=== PATIENT | male | born 1970 ===

== ENCOUNTER 2021-11-21 19:47 | Emergency (ER) | payer BC, SELFPAY ==
[2021-11-21 19:51] VITALS: BP 161/93; PULSE 84; RESP 18; TEMP 36.3; O2SAT 99; BMI 24.3
--- NOTE | 2021-11-21 20:01 | ED_ITS ---
HPI - General Adult General Time Seen by Provider: 20:13 Date Seen: 11/21/21 Chief complaint: Unspecified Complaint, Adult Stated complaint: SEVERE ALLERGIES - RED EYES,CONGESTED Time Seen by Provider: 11/21/21 19:49 Source: patient and RN notes reviewed Mode of arrival: ambulatory Limitations: no limitations History of Present Illness HPI narrative: Patient is a 51-year-old male coming in with concern of worsening seasonal allergies. States his wonders if he could have a sinus infection. He has had no fevers. He does not have any dental pain. Over the last 4 years, this time of year he has had seasonal allergies develop. He gets itchy, watery, red eyes. He gets nasal congestion, sneezing as well as a runny nose. No respiratory symptoms. He is absolutely not had any fevers. Allergies started bothering him about a week ago but last night they became severe where his eyes are worse, his nasal congestion is terrible, difficulty breathing through his nose. He is on Zyrtec D, is using a nasal steroid and believes it might be Flonase, has anti allergy eyedrops. Recently moved to [facility]. Related Data Home Medications Medication Instructions Recorded Confirmed Zyrtec-D 11/21/21 Review of Systems Status of ROS: Reports: 6 or more systems reviewed and unremarkable except as noted in History and below [facility] Social History Smoking Status: Never smoker How often do you have a drink containing alcohol: monthly or less AUDIT-C Alcohol total score: 1 Non-prescribed substance use: denies use Exam Const: Vital Signs, click to edit/add: Vital Signs - 24 hr 11/21/21 19:51 Temperature 97.3 F L Pulse Rate [Left P ulse Oximeter] 84 Respiratory Rate 18 Blood Pressure [Ri ght Upper Arm] 161/93 H Pulse Oximetry 99 Oxygen Delivery Me thod Room Air Documenting provider has reviewed patient's vital signs: yes Common normals: no apparent distress, average body habitus, oriented x3, no limitations, healthy appearing, alert and well nourished HENMT: Common normals: normocephalic, head/scalp atraumatic and hearing grossly normal bilaterally Head and scalp: normocephalic and atraumatic Other: Audible nasal congestion, pale boggy nasal membranes without drainage noted. Oropharynx with normal mucosa, no exudates or erythema. Speech is normal. [place] ition good repair. Neck is supple, no thyromegaly masses or nodules. Eye: Common normals: PERRL and EOMs intact bilaterally Pupil: PERRL Other: His conjunctivae are injected, no periorbital swelling or erythema, no purulent discharge. Neck & C-Spine: Common normals: full ROM, no lymphadenopathy, supple, no meningeal signs, no JVD and thyroid normal Thyroid: thyroid normal Resp: Common normals: normal respiratory effort, no retractions, no use of accessory muscles and clear to auscultation bilaterally Auscultation: clear to auscultation bilaterally Cardio: Common normals: no JVD, regular rate, regular rhythm, S1 normal heart sound, S2 normal heart sound, no gallops, no clicks, no murmurs and no rub Rate: regular rate Rhythm: regular rhythm Heart sounds: S1 normal and S2 normal Neuro: Common normals: oriented x3 Sensorium/orientation: alert Meningeal signs: no meningeal signs Course Course Hospital Course: Reviewed with patient that I really do not feel he has any evidence of bacterial sinusitis. This certainly sounds like seasonal allergies. Unfortunately, I do not have any 40 mg Kenalog here. That typically will work quite well but again I do not have available to me. I have discussed with him trying some steroids, I think a short course of prednisone may help him. He does need to get scheduled back in clinic, discussed his allergies and maybe even consider al camilagy referral. I have talked to him about getting scheduled with [facility]. In his situation, I really do not have a lot available to me out of our ER at this time of night for seasonal allergies. I would certainly give him a shot of Kenalog but again, we do not have the 40 mg Kenalog. Reevaluation(s) Reevaluation #1: My partner in the ED was able to help me find the 40 mg Kenalog. It is under triamcinolone and not Kenalog in the medication ordering. I reviewed with the patient that we indeed do have this in I have had good success with single injection in helping with allergies. He would like to try this. I have ordered 40 mg IM Kenalog. Time: 20:19 Vital Signs Vital signs: Initial Vital Signs Temperature 97.3 F L 11/21/21 19:51 Temperature Source Temporal Artery Scan 11/21/21 19:51 Pulse Rate 84 11/21/21 19:51 Respiratory Rate 18 11/21/21 19:51 Blood Pressure 161/93 H 11/21/21 19:51 Blood Pressure Mean 115 11/21/21 19:51 Blood Pressure Position Sitting 11/21/21 19:51 Pulse Oximetry 99 11/21/21 19:51 Oxygen Delivery Method 11/21/21 19:51 Vital Signs Temperature 97.3 F L 11/21/21 19:51 Pulse Rate 84 11/21/21 19:51 Respiratory Rate 18 11/21/21 19:51 Blood Pressure 161/93 H 11/21/21 19:51 Pulse Oximetry 99 11/21/21 19:51 Oxygen Delivery Method 11/21/21 19:51 Temperature 97.3 F L 11/21/21 19:51 Pulse Rate 84 11/21/21 19:51 Respiratory Rate 18 11/21/21 19:51 Blood Pressure 161/93 H 11/21/21 19:51 Pulse Oximetry 99 11/21/21 19:51 Oxygen Delivery Method 11/21/21 19:51 Critical Care Time Critical Care Time Critical Care Time: No Discharge Plan Discharge Clinical Impression: Acute allergic conjunctivitis, Allergic rhinitis Patient Disposition: Home, Self-Care Condition: Stable Instructions: Allergic Rhinitis (ED), Conjunctivitis (ED), How to Use Nasal [place] (ED) Additional Instructions: Can see if Chata might work better than the Zyrtec for you. This is [id number]. Do recommend stain on the Flonase, can use 2 sprays each nostril up to twice a day as long as it is not drain out you nasal membranes too much and given you nose bleeds. Can continue with her eyedrops that her on. If the Kenalog works for you, you hopefully will have improvement within 24 hours. It may give you relief anywhere from 2-4 weeks. I still do recommend that you follow up in clinic, get established with a primary care provider. They can help tried different medications, even consider allergy referral. Activity Level: No Restrictions Discharge Diet: Regular Prescriptions: No Action Zyrtec-D Stand Alone Forms: [employer] Info Instructions
[2021-11-21] MEDS: TRIAMCINOLONE 40 MG/ML INJ IM (21:23)
== END 2021-11-21 21:46 | disposition home or self-care (01) ==
PROVIDERS: Emergency Provider Family Medicine
DX: J30.2 Other seasonal allergic rhinitis (principal); H10.10 Acute atopic conjunctivitis, unspecified eye
CPT/HCPCS: 96372; 99283; J3301

== ENCOUNTER 2022-04-11 14:19 | Emergency (ER) | payer BC, SELFPAY ==
[2022-04-11 14:22] VITALS: BP 155/79; PULSE 72; TEMP 36.4; O2SAT 100; BMI 25.1
--- NOTE | 2022-04-11 16:08 | CRLHL7_ITS ---
For Patients: As a result of the Cures Act, medical imaging exams and procedure reports are released immediately into your electronic medical record. You may view this report before your referring provider. If you have questions, please contact your health care provider. Indication: Left upper pleuritic pain Comparison: None available. Technique: Single AP view chest Findings: Hyperinflation and interstitial changes. There is no focal consolidation, effusion, or pneumothorax. The cardiac silhouette is mildly prominent. The bony thorax is grossly intact. Impression: Mild central bronchial thickening without dense consolidation. Dictated by Saqib Beard MD @ 04/11/2022 5:15:18 PM (Electronically Signed)
[2022-04-11 16:56] LABS: Hemoglobin* 14.1 gm/dL (13.5-17.5)
--- NOTE | 2022-04-11 16:57 | ED.CHESTPAIN ---
HPI - Chest Pain General Chief Complaint: Chest Pain Stated Complaint: Chest pain Time Seen by Provider: 04/11/22 15:31 History of Present Illness HPI narrative: A 51-year-old man presenting to the emergency department after initially going to urgent care with complaint of mid left-sided chest pain over the last week. Rates a 4/10 at most intense although more rarely will pulse for a second of more intense pain. Has been otherwise generally present at a lower level over the week. Describes it as a pressure. Does have some pleuritic component. He also describes a sense of air hunger at times. No fever, myalgias, cough or cold symptoms recently. No rashes. Does not recall any trauma. 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 No lightheadedness. No dizziness. Abdominal pain. No family history of particular cardiac disease or dysrhythmias or rheumatological disease. He does recount on a few occasions that he has woke with a sense of tingling in his mid low lower leg extending through his feet. No focal weaknesses. Related Data Home Medications Medication Instructions Recorded Confirmed Zyrtec-D 11/21/21 amlodipine 10 mg tablet 10 mg PO QDAY 04/11/22 04/11/22 Allergies Allergy/AdvReac Type Severity Reaction Status Date / Time No Known Drug Allergies Allergy Verified 04/11/22 14:02 Review of Systems Status of ROS Reports: 10 or more systems reviewed and unremarkable except as noted in History and below [facility] Social History Smoking Status: Never smoker How often do you have a drink containing alcohol: monthly or less AUDIT-C Alcohol total score: 1 Non-prescribed substance use: denies use service: No Exam Narrative Exam Narrative: Pleasant. Calm. NAD. Skin is warm and dry. Cranial nerves 2-12 look to be intact. Is breathing easily. Lungs are clear. Breath sounds throughout. There is no supraclavicular crepitus. Cardiovascular with heart with regular rate and rhythm. No murmur rub gallop. Abdomen is flat soft nontender without HSM and no masses. Extremities are well perfused without edema in the lower extremities or elsewhere. Negative Homans. Oropharynx is moist unremarkable. Const Vital Signs, click to edit/add: Vital Signs - 24 hr 04/11/22 14:22 04/11/22 17:39 Temperature 97.6 F 97.2 F L Pulse Rate [Pulse Oximeter] 72 67 Blood Pressure [Right Upper Arm] 155/79 H 136/67 Pulse Oximetry 100 98 Oxygen Delivery Method Room Air Room Air Documenting provider has reviewed patient's vital signs: yes Course Vital Signs Vital signs: Initial Vital Signs Temperature 97.6 F 04/11/22 14:22 Temperature Source Temporal Artery Scan 04/11/22 14:22 Pulse Rate 72 04/11/22 14:22 Blood Pressure 155/79 H 04/11/22 14:22 Blood Pressure Mean 104 04/11/22 14:22 Blood Pressure Position Supine 04/11/22 14:22 Pulse Oximetry 100 04/11/22 14:22 Oxygen Delivery Method 04/11/22 14:22 Vital Signs Temperature 97.6 F 04/11/22 14:22 Pulse Rate 72 04/11/22 14:22 Blood Pressure 155/79 H 04/11/22 14:22 Pulse Oximetry 100 04/11/22 14:22 Oxygen Delivery Method 04/11/22 14:22 Temperature 97.2 F L 04/11/22 17:39 Pulse Rate 67 04/11/22 17:39 Blood Pressure 136/67 04/11/22 17:39 Pulse Oximetry 98 04/11/22 17:39 Oxygen Delivery Method 04/11/22 17:39 MDM - Chest Pain MDM Narrative Medical decision making narrative: Differential also includes pneumonia, vascular dissection, pleuritis Chest x-ray reviewed by me appreciated some mild interstitial edema or centrally borderline cardiomegaly perhaps though this is a portable chest x-ray. More impressive I think are the osteoarthritic changes through the spine. Seems premature. 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 Radiology over-read as below Impression: Mild central bronchial thickening without dense consolidation. Differential Diagnosis Differential diagnosis: Likely pneumothorax, atypical chest pain, costochondritis and chest pain Lab Data Attestation: I reviewed the patient's lab results. Labs: Lab Results 04/11/22 04/11/22 04/11/22 Range/Units 16:27 16:27 16:27 Hgb 14.1 (13.5-17.5) gm/dL D-Dimer Quant (PE/DVT) 0.29 (0.00-0.50) ug/ml Sodium 140 (135-149) mmol/L Potassium 4.7 (3.6-5.1) mmol/L Chloride 103 (96-114) mmol/L Carbon Dioxide 29 (20-32) mmol/L BUN 16 (7-30) mg/dL Creatinine 0.7 (0.5-1.5) mg/dL Estimated Creat Clear 115.41 Estimated GFR 111 ml/min Glucose 86 (60-115) mg/dL Calcium 9.7 (8.4-10.6) mg/dL Troponin I < 0.01 L (0.01-0.04) ng/mL C-Reactive Protein < 0.5 L (0.5-1.0) mg/dL NT-Pro-B Natriuret Pep 28 pg/mL SARS-CoV-2 (PCR) (Negative) POC Troponin I (0.01-0.04) ng/ml 04/11/22 04/11/22 04/11/22 Range/Units 16:27 16:27 18:00 Hgb (13.5-17.5) gm/dL D-Dimer Quant (PE/DVT) (0.00-0.50) ug/ml Sodium (135-149) mmol/L Potassium (3.6-5.1) mmol/L Chloride (96-114) mmol/L Carbon Dioxide (20-32) mmol/L BUN (7-30) mg/dL Creatinine (0.5-1.5) mg/dL Estimated Creat Clear Estimated GFR ml/min Glucose (60-115) mg/dL Calcium (8.4-10.6) mg/dL Troponin I (0.01-0.04) ng/mL C-Reactive Protein (0.5-1.0) mg/dL NT-Pro-B Natriuret Pep Cancelled pg/mL SARS-CoV-2 (PCR) Negative SARS-CoV-2 (Negative) POC Troponin I 0.00 L (0.01-0.04) ng/ml ECG Data Attestation: I personally reviewed and interpreted this ECG as follows: (Normal sinus rhythm at a rate of 61. No ST elevations depressions no Q-waves. Comparison from 2-1/2 hours ago in clinic looks unchanged.) Discharge Plan Discharge Clinical Impression: Atypical chest pain Patient Disposition: Home, Self-Care Condition: Stable Additional Instructions: I would establish care locally to consider further workup given or seen here today. This might include an echocardiogram of the heart and/or stress test. It does not appear that you had any recent injury to your heart. Given that you have had fairly persistent discomfort over the last 6 or 7 days, consider taking ibuprofen 600 mg 3 times daily or naproxen 440 mg 2 times daily for the next 5 days. Might take either with a little bit of food. I will call you if this COVID testing is positive. Prescriptions: No Action amlodipine 10 mg tablet 10 mg PO QDAY Zyrtec-D Follow Up/Referrals: Provider,Not a Local [Primary Care Provider] - Stand Alone Forms: [employer] Info Instructions Discharge Comment: Waiting on negative COVID test, came back negative result
[2022-04-11 17:25] LABS: D Dimer Quantitative* 0.29 ug/ml (0.00-0.50)
[2022-04-11 17:27] LABS: Chloride* 103 mmol/L (96-114); Potassium* 4.7 mmol/L (3.6-5.1); Sodium* 140 mmol/L (135-149)
[2022-04-11 17:30] LABS: Creatinine* 0.7 mg/dL (0.5-1.5); Est. Creatinine Clearance* 115.41; Estimated Glomerular Filt Rate 111 ml/min
[2022-04-11 17:31] LABS: Blood Urea Nitrogen* 16 mg/dL (7-30); Calcium* 9.7 mg/dL (8.4-10.6); Carbon Dioxide* 29 mmol/L (20-32); Glucose* 86 mg/dL (60-115)
[2022-04-11 17:39] VITALS: BP 136/67; PULSE 67; TEMP 36.2; O2SAT 98
[2022-04-11 17:42] LABS: C Reactive Protein* < 0.5 mg/dL (0.5-1.0); NT Pro B Type NatriureticPept* 28 pg/mL
[2022-04-11 17:44] LABS: Troponin I* < 0.01 ng/mL (0.01-0.04)
[2022-04-11 18:45] LABS: SARS PCR* Negative SARS-CoV-2 (Negative)
== END 2022-04-11 18:56 | disposition home or self-care (01) ==
PROVIDERS: Emergency Provider Family Medicine
DX: R07.89 Other chest pain (principal)
CPT/HCPCS: 36415; 71045; 80048; 83880; 84484; 85018; 85379; 86140; 87635; 93005; 99284; 99285